=== PATIENT | male | born 1965 | race Hispanic/Latino ===

== ENCOUNTER 2021-06-17 17:57 | Emergency (ER) | payer OTHER ==
[~2021-06-17] VITALS: Ht 170.2 cm; Wt 100.8 kg
[2021-06-17 17:57] VITALS: BP 152/91
== END 2021-06-17 23:25 | disposition home or self-care (01) ==
LOC: M ED 17:57
DX: S09.90XA Unspecified injury of head, initial encounter (principal); G93.89 Other specified disorders of brain; W00.9XXA Unspecified fall due to ice and snow, initial encounter; Y92.89 Other specified places as the place of occurrence of the external cause; Y93.9 Activity, unspecified; Y99.0 Civilian activity done for income or pay; J34.89 Other specified disorders of nose and nasal sinuses